=== PATIENT | female | born 1980 | race Caucasian/White ===

== ENCOUNTER 2018-03-27 05:27 | Day surgery (SDC) | payer OTHER ==
[~2018-03-27] VITALS: Ht 182.9 cm; Wt 68.0 kg
--- NOTE | ~2018-03-27 | O ---
[facility] [place] [address] OPERATIVE REPORT Name: JOSE HUERTA Dianna Room #: DEP [facility].#: [id number] Admission: 03/27/18 Attend Phys: Rajan Diaz MD Discharge: 03/28/18 Date of : 82 Report #: [id number] THIS REPORT FOR: //name// CC: JOÃO MONTENEGRO MD [facility] physician/PCP Rajan Diaz DATE OF SERVICE: 03/27/2018 PREOPERATIVE DIAGNOSIS: Thyroid mass. POSTOPERATIVE DIAGNOSIS: Thyroid mass. OPERATION PERFORMED: 1. Total thyroidectomy. 2. Nerve integrity monitoring x 2 hours. INDICATIONS: The patient is a 37-year-old female presenting with a 4.8 cm mass in the right lobe of thyroid. Fine needle aspiration was suspicious. This was confirmed on Afirma testing as a suspicious nodule. For that reason, recommendations were made for definitive excision. DESCRIPTION OF PROCEDURE: The patient was brought to the operating room and placed supine on the operating table. After adequate general anesthesia was achieved via endotracheal intubation with a nerve integrity monitoring endotracheal tube, shoulder roll was placed and neck was extended. The planned incision was marked out in a relaxed skin tension line and injected with 1% Xylocaine with 1:100,000 epinephrine. As a separate part of the procedure, the [employer] nerve integrity monitor was applied to the electrodes from the endotracheal tube. Ground electrodes were placed in the soft tissue overlying the sternum and contralateral shoulder. Electrode resistance and impedance was measured and found to be acceptable. Threshold and stimulus intensity parameters were set and the patient was monitored for the entirety of the case for approximately 2 hours in order to locate and protect the recurrent laryngeal nerve. She was then prepped and draped in a sterile fashion. The procedure began with incision through skin, subcutaneous tissue and platysma. Subplatysmal flaps were elevated superiorly and inferiorly. Dissection was made down to the strap muscles. These were divided vertically in the midline. Dissection was made down to the thyroid. There was a very large mass on the right side encompassing the entire lobe, measuring about 4.8 cm. Beginning superiorly, the superior vessels were sequentially identified, clamped between Ligaclips and divided. Middle thyroid vein was taken down between Ligaclips and the inferior vessels were sequentially identified, clipped between [facility] [address] [place] [address] OPERATIVE REPORT Name: BRADLEYJOSE Dianna Room #: DEP [facility]..#: [id number] Admission: 03/27/18 Attend Phys: Rajan Diaz MD Discharge: 03/28/18 Date of : 82 Report #: [id number] Ligaclips and divided. The isthmus was taken off the trachea with harmonic rebecca. The gland was rolled up on to the trachea. Dissection in the tracheoesophageal groove revealed the recurrent nerve in its usual anatomic position. This was tracked superiorly to the cricothyroid joint. The Sheriff's ligament was taken down sharply. The superior parathyroid was found on the capsule and preserved on its blood supply, as was the inferior parathyroid. 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 Final diagnosis was deferred to permanent section. While this was happening, the left lobe was dissected beginning superiorly. The superior vessels were sequentially identified, clamped between the Ligaclips and divided. Middle thyroid vein was taken down between Ligaclips. The inferior vessels were sequentially identified, clamped between Ligaclips and divided. This dissection was then made in the tracheoesophageal groove. This was tracked superiorly. The Sheriff's ligament was taken down sharply. Again on this side, the superior parathyroid was found attached to the gland, dissected and preserved. The inferior parathyroid as well was identified, dissected and preserved. Hemostasis was then assured with bipolar cautery and clip ligature. Both nerves were identified positively with probe stimuli and confirmed to be intact. All four parathyroids were identified. Palpation was made for any abnormal nodes, there were none. The wound was then closed in layers after placing a 10-Malian Matt drain through a separate stab incision. This was sutured in place with 2-0 silk. The strap muscles were closed with 3-0 Vicryl, 4-0 Vicryl was used to close the platysma, 4-0 Vicryl deep dermal sutures and a 5-0 running subcuticular Prolene on skin. Mastisol and Steri-Strips were applied followed by an Op-Site. The patient was then returned to anesthesia, awake without difficulty, returned to recovery in good condition. Sponge and needle counts were correct. There were no complications. Blood loss was minimal. The patient will be watched until awake and stable, presuming she does well, discharged home with plans to follow with me in the morning, to be here in 1 week for suture removal, 48 hours for drain removal. Written and verbal discharge instructions and emergency precautions have been given to her family. DISCHARGE MEDICATIONS: Include Synthroid 100 mcg every day, Tums 2 p.o. t.i.d., Phenergan suppository 25 mg 1 per rectum q. 4-6 hours p.r.n., hydrocodone/acetaminophen 7.5/325 one to two q. 4-6 hours p.r.n., cephalexin 500 mg 1 tablet 4 times a day. She is instructed on light activity and soft diets. <ELECTRONICALLY SIGNED> By: Rajan Diaz MD 03/30/18 [id number] Rajan Diaz MD /nt
[2018-03-27 14:10] VITALS: BP 125/78
[2018-03-27 17:02] LABS: ALBUMIN 4.1 g/dL (3.4-5.0); MAGNESIUM 1.8 mg/dL (1.8-2.4)
[2018-03-27 18:03] VITALS: BP 112/61
[2018-03-27 18:30] VITALS: BP 111/65
[2018-03-27 19:26] VITALS: BP 116/69
[2018-03-28 04:29] VITALS: BP 100/61
[2018-03-28 08:04] VITALS: BP 100/61
[2018-03-28] MEDS ORDERED: TUMS PO (08:10)
[2018-03-28] MEDS ORDERED: KEFLEX500 M1 PO (08:10)
[2018-03-28] MEDS ORDERED: SYNTHROID100 MC1 PO (08:11)
[2018-03-28] MEDS ORDERED: PROMS25 WY RECTAL (08:11)
[2018-03-28] MEDS ORDERED: NORCO 7.5-3251 EACH PO (08:13)
[2018-03-28 08:30] VITALS: BP 103/72
== END 2018-03-28 11:15 | disposition home or self-care (01) ==
LOC: TBA 05:27 → OR 05:27 → 4E 17:45 → OR 03-28 11:15
PROVIDERS: Otolaryngology Plastic Surgery within the Head & Neck
DX: C73 Malignant neoplasm of thyroid gland (principal); E07.89 Other specified disorders of thyroid; Z87.891 Personal history of nicotine dependence; Z98.890 Other specified postprocedural states; Z79.899 Other long term (current) drug therapy
CPT/HCPCS: 10783; 50010; 50101; 50331; 50386; 50417; 52190; 52220; 52287; 56524; 56526; 56528; 56760; 57006; 65133; 70005